=== PATIENT | female | born 1990 | race Caucasian/White ===

== ENCOUNTER 2019-09-01 17:33 | Emergency (ER) | payer OTHER ==
[~2019-09-01] VITALS: Ht 172.7 cm; Wt 57.2 kg
[2019-09-01 17:37] VITALS: BP 140/75
--- NOTE | 2019-09-01 17:44 | NUR ---
PT AMBULATED TO BED 8
--- NOTE | 2019-09-01 17:48 | NUR ---
PT AMBULATED TO CHAIR C
--- NOTE | 2019-09-01 17:54 | NUR ---
29 Y/O F PRESENTS TO ER FOR S/P MECHANICAL FALL AT 11:50AM. PT BROKE FALL, BUT HIT HEAD, RIGHT EAR, RIGHT SHOULDER AND RIGHT COLLAR BONE AGAINST CONCRETE WALL. DENIES LOC. DENIES N/V. CURRENTLY PT RIGHT SHOULDER AND RIGHT COLLAR BONE AREA IS PAIN LEVEL 5/10, SHARP PAIN. REDNESS NOTED TO COLLAR BONE AREA. PT AT CHAIRSIDE. WAITING FOR PA TO EVALUATE PT. ALLERGIES: NKA MED HX: NONE
--- NOTE | 2019-09-01 18:18 | NUR ---
PA EVALUATING PT AT CHAIRSIDE
[2019-09-01 18:30] VITALS: BP 140/75
== END 2019-09-01 18:30 | disposition home or self-care (01) ==
LOC: MED 17:33
DX: S10.91XA Abrasion of unspecified part of neck, initial encounter (principal); S01.331A Puncture wound without foreign body of right ear, initial encounter; W01.198A Fall on same level from slipping, tripping and stumbling with subsequent striking against other object, initial encounter; Y93.89 Activity, other specified; Y92.89 Other specified places as the place of occurrence of the external cause; Y99.8 Other external cause status
CPT/HCPCS: 99282